=== PATIENT | female | born 1960 | race African-American/Black ===

== ENCOUNTER 2017-05-28 10:00 | Emergency (ER) | payer MEDICARE ==
[~2017-05-28] VITALS: Ht 170.2 cm; Wt 90.7 kg
[2017-05-28 10:00] VITALS: BP_SYST 128
[2017-05-28] MEDS ORDERED: KETOROLAC TROMETHAMINE 30 MG VIAL IM ONE (10:15)
[2017-05-28 10:34] LABS: BASOPHILS # (AUTO) 0.1 K/uL (0.0-0.2); BASOPHILS % (AUTO) 1.3 % (0.0-2.0); EOSINOPHILS # (AUTO) 0.2 K/uL (0.0-0.4); HEMATOCRIT 36.2 % (36-48); HEMOGLOBIN 11.9 g/dL (12.0-16.0); LYMPHOCYTES # (AUTO) 0.9 K/uL (1.0-5.5); LYMPHOCYTES % (AUTO) 16.5 % (20.5-51.5); MEAN CORPUSCULAR HEMOGLOBIN 29 pg (27-31); MEAN CORPUSCULAR HGB CONC 33 % (32-36); MEAN CORPUSCULAR VOLUME 88 fL (79.0-98.0); MONOCYTES # (AUTO) 0.2 K/uL (0.0-1.0); MONOCYTES % (AUTO) 3.4 % (1.7-9.3); NEUTROPHILS # (AUTO) 3.9 K/uL (1.8-7.7); NEUTROPHILS % (AUTO) 75.8 % (40.0-70.0); PLATELET COUNT (AUTO) 246 K/uL (130-430); RED BLOOD CELL COUNT(AUTO) 4.13 MIL/uL (4.2-6.2); RED CELL DISTRIBUTION WIDTH 14.8 % (9.0-15.0); WHITE BLOOD COUNT (AUTO) 5.3 K/uL (4.8-10.8)
[2017-05-28 10:36] LABS: CALCIUM 9.4 mg/dL (8.4-11.0); POTASSIUM 3.7 mmol/L (3.5-5.1)
[2017-05-28 10:37] LABS: CREATININE 1.02 mg/dL (0.55-1.30)
[2017-05-28 10:38] LABS: PROTHROMBIN TIME 11.2 SECS (9.5-12.5)
[2017-05-28 10:41] LABS: ALBUMIN 3.4 g/dL (3.4-4.8); TOTAL BILIRUBIN 0.7 mg/dL (0.0-1.0); TOTAL PROTEIN, SERUM 7.3 g/dL (6.4-8.3)
[2017-05-28] MEDS ORDERED: VIS25 PO (11:09)
[2017-05-28] MEDS ORDERED: BENZ100C67 PO (11:09)
[2017-05-28] MEDS ORDERED: NEU300 PO (11:09)
[2017-05-28] MEDS ORDERED: IBUP-1969 PO (11:09)
[2017-05-28] MEDS ORDERED: GLU500 PO (11:09)
[2017-05-28] MEDS ORDERED: DIAZ10TA4 PO (11:09)
[2017-05-28] MEDS ORDERED: EST1 PO (11:09)
[2017-05-28] MEDS ORDERED: LEVO88TA5 PO (11:09)
[2017-05-28] MEDS ORDERED: ZOLP5TAB2 PO (11:09)
[2017-05-28] MEDS ORDERED: LIP20 PO (11:09)
[2017-05-28] MEDS ORDERED: MULT PO (11:09)
[2017-05-28] MEDS ORDERED: VITD2000 PO (11:09)
[2017-05-28 13:10] VITALS: BP_SYST 134
== END 2017-05-28 13:10 | disposition home or self-care (01) ==
LOC: SED 10:00
DX: R07.89 Other chest pain (principal); E11.9 Type 2 diabetes mellitus without complications; I10 Essential (primary) hypertension; M79.7 Fibromyalgia; Z88.5 Allergy status to narcotic agent; Z88.8 Allergy status to other drugs, medicaments and biological substances; Z79.84 Long term (current) use of oral hypoglycemic drugs; Z79.899 Other long term (current) drug therapy
CPT/HCPCS: 36415; 71010; 80053; 82962; 83880; 84484; 85025; 85379; 85610; 85730; 93005; 96374; 99285; J1885